=== PATIENT | male | born 1980 ===

== ENCOUNTER 2025-01-08 19:41 | Emergency (ER) | payer MEDICARE, MEDICAID ==
[~2025-01-08] VITALS: Ht 180.3 cm; Wt 70.5 kg
[2025-01-08 19:46] VITALS: TEMP 98.4
[2025-01-08 22:25] LABS: ANION GAP 8 mmol/L (8-16); CALCIUM, TOTAL 8.9 mg/dL (8.8-10.5); CARBON DIOXIDE 32 mmol/L (22-29); CHLORIDE 102 mmol/L (98-107); CREATININE 1.08 mg/dL (0.60-1.30); GLOMERULAR FILTR. RATE CALC > 60 mL/min (>60); GLUCOSE,RANDOM 89 mg/dL (70-110); POTASSIUM 3.2 mmol/L (3.5-5.1); SODIUM SERUM 142 mmol/L (136-145); UREA NITROGEN, BLOOD 11 mg/dL (7-18)
[2025-01-08 22:30] LABS: ALANINE AMINOTRANSFERASE 14 U/L (12-78); ALBUMIN 4.1 g/dL (3.4-5.0); ALKALINE PHOSPHATASE 83 U/L (46-116); ASPARTATE AMINOTRANSFERASE 19 U/L (15-37); BILIRUBIN,TOTAL 0.7 mg/dL (0.1-1.0); CREATINE KINASE, TOTAL ONLY 237 U/L (39-308); TOTAL PROTEIN, SERUM 7.4 g/dL (6.4-8.2)
[2025-01-08 22:33] LABS: BASOPHILS % (AUTO) 0.7 % (0.0-2.0); EOSINOPHILS % (AUTO) 1.6 % (1.0-6.0); HEMATOCRIT 44.9 % (41-53); HEMOGLOBIN 15.3 g/dL (13.5-17.5); LYMPHOCYTES # (AUTO) 1.8 K/uL (1.0-4.8); LYMPHOCYTES % (AUTO) 16.2 % (22.0-44.0); MEAN CORPUSCULAR HEMOGLOBIN 29.7 pg (26.0-34.0); MEAN CORPUSCULAR HGB CONC 34.2 G/dL (31.0-37.0); MEAN CORPUSCULAR VOLUME 87 fL (80-100); MONOCYTES % (AUTO) 9.4 % (2.0-9.0); NEUTROPHILS # (AUTO) 7.9 K/uL (1.8-7.7); NEUTROPHILS % (AUTO) 72.1 % (40.0-70.0); PLATELET COUNT (AUTO) 300 K/uL (150-450); RED BLOOD CELL COUNT(AUTO) 5.17 MIL/uL (4.50-5.90); RED CELL DISTRIBUTION WIDTH 13.5 % (11.5-14.5); WHITE BLOOD COUNT (AUTO) 10.9 K/uL (4.5-11.0)
[2025-01-08 22:34] LABS: TROPONIN I-HIGH SENSITIVITY 6 ng/L (<76)
[2025-01-08 22:45] LABS: B-TYPE NATRIURETIC PEPTIDE 10 pg/mL (0-100)
[2025-01-08 22:47] LABS: ALCOHOL, BLOOD (SERUM) < 3 mg/dL (0-10)
[2025-01-09 00:21] LABS: APPEARANCE,URINE CLEAR (CLEAR); BILIRUBIN,URINE NEGATIVE (NEGATIVE); COLOR,URINE LIGHT YELLOW (YELLOW); GLUCOSE, URINE (UA) NEGATIVE (NEGATIVE); KETONES,URINE NEGATIVE (NEGATIVE); LEUKOCYTE ESTERASE ,URINE NEGATIVE (NEGATIVE); NITRATE,URINE NEGATIVE (NEGATIVE); OCCULT BLOOD,URINE NEGATIVE (NEGATIVE); PROTEIN,URINE NEGATIVE (NEGATIVE); SPECIFIC GRAVITIY, URINE 1.008 (1.003-1.030); UROBILINOGEN,URINE <=1.0 mg/dL (<=1.0)
[2025-01-09 00:25] LABS: AMPHET/METH SCREEN,URINE NEGATIVE (NEGATIVE); BARBITURATE SCREEN, URINE NEGATIVE (NEGATIVE); BENZODIAZEPINES SCREEN,URINE NEGATIVE (NEGATIVE); CANNABINOID SCREEN,URINE NEGATIVE (NEGATIVE); COCAINE SCREEN,URINE NEGATIVE (NEGATIVE); METHADONE SCREEN, URINE NEGATIVE (NEGATIVE); OPIATE SCREEN,URINE NEGATIVE (NEGATIVE); PHENCYCLIDINE SCREEN,URINE NEGATIVE (NEGATIVE)
[2025-01-09 00:38] LABS: ALCOHOL, URINE DRUG SCREEN NEGATIVE (NEGATIVE)
[2025-01-09] MEDS: POTASSIUM CHLORIDE 20 MEQ ER TABLET PO ONE (01:37)
[2025-01-09 02:11] VITALS: BP 127/68; PULSE 77; RESP 16; O2SAT 96
== END 2025-01-09 06:10 | disposition home or self-care (01) ==
LOC: EMS 19:41
DX: E87.6 Hypokalemia (principal); Z59.00 Homelessness unspecified; Z98.890 Other specified postprocedural states
CPT/HCPCS: 99284; 80048; 80076; 81003; 82140; 82550; 83880; 84484; 85025; 36415; 93005; 80307; G0480

== ENCOUNTER 2025-01-09 23:23 | Emergency (ER) | payer MEDICARE, MEDICAID ==
[~2025-01-09] VITALS: Ht 180.3 cm; Wt 57.0 kg
[2025-01-09 23:24] VITALS: TEMP 98.5
[2025-01-09 23:55] LABS: BASOPHILS % (AUTO) 1.1 % (0.0-2.0); HEMATOCRIT 40.7 % (41-53); HEMOGLOBIN 14.1 g/dL (13.5-17.5); LYMPHOCYTES # (AUTO) 1.9 K/uL (1.0-4.8); LYMPHOCYTES % (AUTO) 26.1 % (22.0-44.0); MEAN CORPUSCULAR HEMOGLOBIN 29.8 pg (26.0-34.0); MEAN CORPUSCULAR HGB CONC 34.6 G/dL (31.0-37.0); MEAN CORPUSCULAR VOLUME 86 fL (80-100); MONOCYTES # (AUTO) 0.8 K/uL (0.1-1.0); MONOCYTES % (AUTO) 11.4 % (2.0-9.0); NEUTROPHILS # (AUTO) 4.1 K/uL (1.8-7.7); NEUTROPHILS % (AUTO) 57.4 % (40.0-70.0); PLATELET COUNT (AUTO) 240 K/uL (150-450); RED BLOOD CELL COUNT(AUTO) 4.73 MIL/uL (4.50-5.90); RED CELL DISTRIBUTION WIDTH 13.6 % (11.5-14.5); WHITE BLOOD COUNT (AUTO) 7.2 K/uL (4.5-11.0)
[2025-01-10 00:03] LABS: ANION GAP 10 mmol/L (8-16); CALCIUM, TOTAL 8.5 mg/dL (8.8-10.5); CARBON DIOXIDE 30 mmol/L (22-29); CHLORIDE 104 mmol/L (98-107); CREATININE 0.88 mg/dL (0.60-1.30); GLOMERULAR FILTR. RATE CALC > 60 mL/min (>60); GLUCOSE,RANDOM 95 mg/dL (70-110); POTASSIUM 3.2 mmol/L (3.5-5.1); SODIUM SERUM 144 mmol/L (136-145); UREA NITROGEN, BLOOD 11 mg/dL (7-18)
[2025-01-10 00:07] LABS: ALBUMIN 3.4 g/dL (3.4-5.0); BILIRUBIN,DIRECT 0.1 mg/dL (0.00-0.20); BILIRUBIN,TOTAL 0.3 mg/dL (0.1-1.0); TOTAL PROTEIN, SERUM 6.4 g/dL (6.4-8.2)
[2025-01-10 00:12] LABS: TROPONIN I-HIGH SENSITIVITY 6 ng/L (<76)
[2025-01-10] MEDS ORDERED: NITROGLYCERIN 0.4 MG SUBLINGUAL TABLET #25 SL PRN (00:15)
[2025-01-10] MEDS ORDERED: ACETAMINOPHEN 325 MG TABLET PO PRN (00:15)
[2025-01-10] MEDS: ASPIRIN 81 MG CHEWABLE TABLET PO SCH (00:15)
[2025-01-10] MEDS ORDERED: ONDANSETRON HCL 4 MG/2 ML VIAL IVP PRN (00:15)
[2025-01-10] MEDS ORDERED: MORPHINE SULFATE 2 MG/ML SYRINGE IVP PRN (00:15)
[2025-01-10] MEDS: NALOXONE HCL 1 MG/ML 2 ML SYRINGE IVP ONE (00:21)
[2025-01-10 00:24] VITALS: BP 104/68; PULSE 69; RESP 16; O2SAT 97
[2025-01-10 00:31] LABS: PROTHROMBIN TIME 9.7 SEC (9.4-11.6)
[2025-01-10] MEDS: POTASSIUM CHLORIDE 20 MEQ ER TABLET PO ONE (00:31)
[2025-01-10] MEDS ORDERED: HEPARIN SODIUM,PORCINE 5,000 UNITS/ML VIAL SQ SCH (08:00)
[2025-01-10] MEDS ORDERED: DOCUSATE SODIUM 100 MG CAPSULE PO SCH (09:00)
== END 2025-01-10 00:58 | disposition left against medical advice (07) ==
LOC: EMS 23:44
DX: R07.2 Precordial pain (principal); Z98.890 Other specified postprocedural states
CPT/HCPCS: 99284; 80048; 80076; 82550; 83880; 84484; 85025; 85610; 85730; 36415; 93005; 96374; J2310

== ENCOUNTER 2025-04-06 11:07 | Emergency (ER) | payer MEDICARE, MEDICAID ==
[~2025-04-06] VITALS: Ht 182.9 cm; Wt 58.9 kg
[2025-04-06 11:35] VITALS: TEMP 97.805264
[2025-04-06 11:43] LABS: APPEARANCE,URINE CLEAR (CLEAR); GLUCOSE, URINE (UA) NEGATIVE (NEGATIVE); LEUKOCYTE ESTERASE ,URINE NEGATIVE (NEGATIVE); NITRATE,URINE NEGATIVE (NEGATIVE); OCCULT BLOOD,URINE NEGATIVE (NEGATIVE); PH,URINE DRUG SCREEN 6.5 (5.0-8.0); SPECIFIC GRAVITIY, URINE 1.003 (1.003-1.030)
[2025-04-06 11:50] LABS: AMPHET/METH SCREEN,URINE NEGATIVE (NEGATIVE); BARBITURATE SCREEN, URINE NEGATIVE (NEGATIVE); CANNABINOID SCREEN,URINE NEGATIVE (NEGATIVE); COCAINE SCREEN,URINE NEGATIVE (NEGATIVE); METHADONE SCREEN, URINE NEGATIVE (NEGATIVE)
[2025-04-06 11:56] LABS: COVID AG,FIA SOURCE NASAL SWAB
[2025-04-06] MEDS: ACETAMINOPHEN 500 MG TABLET PO ONE (11:57)
[2025-04-06 11:58] LABS: ALCOHOL, URINE DRUG SCREEN NEGATIVE (NEGATIVE)
[2025-04-06 12:00] LABS: SQUAMOUS EPITHELIAL CELL,UR Few /LPF (None Seen)
[2025-04-06 12:25] LABS: SARS-COV2 (COVID) ANTIGEN,FIA Negative (Negative)
[2025-04-06 12:49] LABS: PLATELET COUNT (AUTO) 258 K/uL (150-450); RED BLOOD CELL COUNT(AUTO) 4.30 MIL/uL (4.50-5.90); RED CELL DISTRIBUTION WIDTH 14.3 % (11.5-14.5); WHITE BLOOD COUNT (AUTO) 9.3 K/uL (4.5-11.0)
[2025-04-06 12:57] LABS: CALCIUM, TOTAL 9.0 mg/dL (8.8-10.5); CREATININE 0.98 mg/dL (0.60-1.30); GLOMERULAR FILTR. RATE CALC > 60 mL/min (>60); GLUCOSE,RANDOM 86 mg/dL (70-110); SODIUM SERUM 139 mmol/L (136-145); UREA NITROGEN, BLOOD 22 mg/dL (7-18)
[2025-04-06 13:06] LABS: TROPONIN I-HIGH SENSITIVITY 5 ng/L (<76)
[2025-04-06 13:33] LABS: ALCOHOL, BLOOD (SERUM) < 3 mg/dL (0-10)
[2025-04-06 13:46] VITALS: BP 126/82; PULSE 94; RESP 14; O2SAT 100
== END 2025-04-06 13:30 | disposition short-term general hospital (02) ==
LOC: EMS 11:07
DX: R45.851 Suicidal ideations (principal); F41.9 Anxiety disorder, unspecified; R07.89 Other chest pain; R42 Dizziness and giddiness; F20.9 Schizophrenia, unspecified; F12.90 Cannabis use, unspecified, uncomplicated; Z90.49 Acquired absence of other specified parts of digestive tract; Z02.9 Encounter for administrative examinations, unspecified; Z20.822 Contact with and (suspected) exposure to COVID-19
CPT/HCPCS: 99285; 71045; 87426; 80048; 81001; 83690; 83880; 84484; 85025; 36415; 93005; 80307; G0480

== ENCOUNTER 2025-04-06 18:28 | Inpatient (IN) | payer BC, MEDICAID ==
[~2025-04-06] VITALS: Ht 182.9 cm; Wt 59.0 kg
[2025-04-06 20:51] LABS: GLUCOMETER DEV NAME(LOC) POC.BV; POC SARS-COV2 AG, FIA NEGATIVE (NEGATIVE)
[2025-04-06 22:10] VITALS: BP 114/94; PULSE 87; RESP 16; TEMP 96.1; O2SAT 96
[2025-04-07] MEDS ORDERED: MAG HYDROX/ALUMINUM HYD/SIMETH ES 30 ML SUSPENSION UDCUP PO PRN (07:30)
[2025-04-07] MEDS ORDERED: PETROLATUM,WHITE 28 GM JELLY TP PRN (07:30)
[2025-04-07] MEDS ORDERED: GuaiFENesin/D-METHORPHAN [SUGAR-FREE] 200-20MG/10 ML SYRUP UDCUP PO PRN (07:30)
[2025-04-07] MEDS ORDERED: MAGNESIUM HYDROXIDE SUSPENSION 30 ML UDCUP PO PRN (07:30)
[2025-04-07] MEDS ORDERED: ONDANSETRON 4 MG TABLET PO PRN (07:30)
[2025-04-07] MEDS ORDERED: ALBUTEROL SULFATE HFA 90 MCG/PUFF 8 GM INHALER IH PRN (07:30)
[2025-04-07] MEDS ORDERED: ACETAMINOPHEN 325 MG TABLET PO PRN (07:30)
[2025-04-07] MEDS ORDERED: IBUPROFEN 400 MG TABLET PO PRN (07:30)
[2025-04-07] MEDS ORDERED: NICOTINE 14 MG/24 HOUR PATCH TD PRN (07:30)
[2025-04-07] MEDS ORDERED: LOPERAMIDE HCL 2 MG CAPSULE PO PRN (07:30)
[2025-04-07] MEDS ORDERED: DOCUSATE SODIUM 100 MG CAPSULE PO PRN (07:30)
[2025-04-07 08:23] VITALS: BP 107/67; PULSE 96; RESP 18; TEMP 97.7; O2SAT 98
[2025-04-07 09:35] LABS: ASPARTATE AMINOTRANSFERASE 21 U/L (15-37); CALCIUM, TOTAL 9.0 mg/dL (8.8-10.5); CHOL/HDL RATIO 3.1 (4.2-7.3); CREATININE 1.01 mg/dL (0.60-1.30); GLOMERULAR FILTR. RATE CALC > 60 mL/min (>60); GLUCOSE,RANDOM 148 mg/dL (70-110); LDL CHOL (CALC.) 78 mg/dL (0-130); SODIUM SERUM 137 mmol/L (136-145); TOTAL PROTEIN, SERUM 7.7 g/dL (6.4-8.2); UREA NITROGEN, BLOOD 22 mg/dL (7-18)
[2025-04-07] MEDS: ESCITALOPRAM OXALATE 10 MG TABLET PO SCH (15:13)
[2025-04-07] MEDS: POTASSIUM CHLORIDE 20 MEQ ER TABLET PO ONE (18:44)
[2025-04-07] MEDS: ZOLPIDEM TARTRATE 10 MG TABLET PO PRN (20:21)
[2025-04-07 21:13] VITALS: BP 115/70; PULSE 88; RESP 16; TEMP 98; O2SAT 100
[2025-04-08 08:34] VITALS: BP 115/72; PULSE 79; RESP 19; TEMP 97.6; O2SAT 100
[2025-04-08] MEDS: BACITRACIN 28 GM OINTMENT TP SCH (08:56)
[2025-04-08] MEDS: PSYLLIUM SEED ORANGE SF 5.8 GM/PACKET PO PRN (08:56)
[2025-04-08] MEDS ORDERED: LORazepam 2 MG/ML VIAL ONE (17:23)
[2025-04-08] MEDS: LORazepam 2 MG/ML VIAL IM ONE (18:12)
[2025-04-08 20:13] VITALS: RESP 19
[2025-04-09 08:46] VITALS: BP 107/65; PULSE 99; RESP 17; TEMP 97; O2SAT 98
[2025-04-09] MEDS ORDERED: LORazepam 2 MG/ML VIAL ONE (15:33)
[2025-04-09] MEDS: LORazepam 2 MG/ML VIAL IM ONE (15:45)
[2025-04-09 19:44] VITALS: BP 132/74; PULSE 87; RESP 18; TEMP 98.5; O2SAT 98
[2025-04-09 20:15] VITALS: BP 132/74; PULSE 87; RESP 18; TEMP 98.5; O2SAT 98
[2025-04-10 08:26] VITALS: BP 108/61; PULSE 101; RESP 18; TEMP 98.1; O2SAT 98
[2025-04-10 20:39] VITALS: BP 120/84; PULSE 100; RESP 17; TEMP 98.1; O2SAT 99
[2025-04-11 08:12] VITALS: BP 110/62; PULSE 85; RESP 15; TEMP 98; O2SAT 99
== END 2025-04-11 11:50 | disposition left against medical advice (07) | DRG 885 ==
LOC: B3A 19:18
PROVIDERS: ADMIT Psychiatry & Neurology Psychiatry; ATTEND Psychiatry & Neurology Psychiatry
PROC: GZHZZZZ Group Psychotherapy (ICD-10-PCS; principal; 2025-04-07)
PROC: GZ52ZZZ Individual Psychotherapy, Cognitive (ICD-10-PCS; 2025-04-10)
DX: F25.1 Schizoaffective disorder, depressive type (principal); C41.9 Malignant neoplasm of bone and articular cartilage, unspecified; Z59.00 Homelessness unspecified; R45.851 Suicidal ideations; G40.909 Epilepsy, unspecified, not intractable, without status epilepticus; E87.6 Hypokalemia; G47.00 Insomnia, unspecified; F12.90 Cannabis use, unspecified, uncomplicated; F41.9 Anxiety disorder, unspecified; F10.10 Alcohol abuse, uncomplicated; Y90.9 Presence of alcohol in blood, level not specified; Z20.822 Contact with and (suspected) exposure to COVID-19; Z53.29 Procedure and treatment not carried out because of patient's decision for other reasons; Z65.3 Problems related to other legal circumstances; Z79.899 Other long term (current) drug therapy; Z81.8 Family history of other mental and behavioral disorders; Z91.51 Personal history of suicidal behavior
CPT/HCPCS: 80053; 80061; 83036; 84132; 84439; 84443; 87081; J1200; J1630; J2060